=== PATIENT | male | born 1945 ===

== ENCOUNTER 2022-03-03 07:53 | Outpatient (CLI) | payer MEDICARE, OTHER | END 2022-03-03 07:54 | disposition EMS.NT | LOC: EMS 07:53 | DX: Z03.89 Encounter for observation for other suspected diseases and conditions ruled out (principal) ==

== ENCOUNTER 2023-05-03 23:05 | Outpatient (CLI) | payer MEDICARE, OTHER | END 2023-05-03 23:59 | disposition short-term general hospital (02) | LOC: EMS 23:05 | DX: R53.1 Weakness (principal); R55 Syncope and collapse; R42 Dizziness and giddiness; R61 Generalized hyperhidrosis; H53.8 Other visual disturbances; R41.0 Disorientation, unspecified; R06.02 Shortness of breath | CPT/HCPCS: A0425; A0427 ==